=== PATIENT | male | born 1995 | race African-American/Black ===

== ENCOUNTER 2023-06-08 09:50 | Emergency (ER) | payer SELFPAY ==
[~2023-06-08] VITALS: Ht 177.8 cm; Wt 70.0 kg
[2023-06-08] MEDS: ZIPRASIDONE MESYLATE 20MG/VIAL IM STA (10:04)
[2023-06-08] MEDS: MIDAZOLAM HCL 2 MG/2 ML VIAL IV NR (10:15)
[2023-06-08] MEDS ORDERED: MIDAZOLAM HCL 2 MG/2 ML VIAL IV ONE (10:15)
[2023-06-08] MEDS: SODIUM CHLORIDE 0.9% 1,000 ML IV ONE (10:47)
[2023-06-08 11:09] LABS: BASOPHILS % 0.9 % (0.0-2.0); EOSINOPHILS % 0.8 % (0.0-5.0); HEMATOCRIT. 42.4 % (42.0-52.0); HEMOGLOBIN. 14.1 g/dL (14.0-18.0); LYMPHOCYTES % 15.1 % (20.0-50.0); MEAN CORPUSCULAR HEMOGLOBIN 29.3 pg (28.0-32.0); MEAN CORPUSCULAR HGB CONC 33.4 g/dL (31.0-37.0); MEAN CORPUSCULAR VOLUME 87.8 fL (80.0-94.0); MEAN PLATELET VOLUME 7.2 fl (7.4-10.4); MONOCYTES % 6.4 % (2.0-8.0); NEUTROPHILS % 76.8 % (40.0-76.0); PLATELET 314 x1000/uL (130-400); RED BLOOD CELL COUNT 4.82 mill/uL (4.7-6.1); RED CELL DISTRIBUTION WIDTH 14.1 % (11.6-14.6); WHITE BLOOD COUNT 6.6 x1000/uL (4.5-11.0)
[2023-06-08 11:14] LABS: INR 1.1; PROTHROMBIN TIME 11.9 sec (9.6-11.0)
[2023-06-08 11:36] LABS: ALANINE AMINOTRANSFERASE 12 IU/L (10-49); ASPARTATE AMINOTRANSFERASE 18 IU/L (<34); BILIRUBIN TOTAL 1.1 mg/dL (0.1-1.0); CALCIUM 9.8 mg/dL (8.7-10.4); CARBON DIOXIDE 23 mEq/L (21-32); CHLORIDE 108 mEq/L (98-107); CREATININE 1.1 mg/dL (0.6-1.3); GLUCOSE 104 mg/dL (70-105); POTASSIUM 3.3 mEq/L (3.5-5.1); PROTEIN TOTAL 8.5 g/dL (6.0-8.3); SODIUM 141 mEq/L (136-145); UREA NITROGEN BLOOD 9 mg/dL (9-23)
[2023-06-08 11:48] LABS: ETHANOL BLOOD < 10 mg/dL (<10)
[2023-06-08] MEDS: POTASSIUM CHLORIDE 20MEQ TABLET SR PO ONE (14:30)
[2023-06-08 15:10] VITALS: BP 128/82; PULSE 80; RESP 18; TEMP 98.1; O2SAT 100
== END 2023-06-08 15:31 | disposition left against medical advice (07) ==
LOC: ER 10:07
DX: R45.1 Restlessness and agitation (principal)
CPT/HCPCS: 80053; 80307; 80329; 80320; 85025; 85610; 36415; 71045; 70450; 93005; 96361; 96372; 96374; 99291; J2250; J3486; J7030; Z7610 ×3; G0480